=== PATIENT | female | born 1970 | race Caucasian/White ===

== ENCOUNTER 2020-11-11 15:25 | Emergency (ER) | payer OTHER ==
[~2020-11-11] VITALS: Ht 172.7 cm; Wt 110.7 kg
--- NOTE | 2020-11-11 15:54 | PHYS DOC ---
Past History Additional Past Medical Histor: Factor 5 (NIKKI STEVENSON APRN) Past Surgical History: (NIKKI STEVENSON APRN) Alcohol Use: None (NIKKI STEVENSON APRN) General Adult EDM: Chief Complaint: HEAT EXPOSURE HPI: HPI: Patient is a 49-year-old female being seen in the ER today for heat exposure. 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 She reports that she was experiencing lightheadedness, nausea, headache and just feeling overheated at that time. Patient reports that she got back to the office in the air conditioning and now she is feeling better. She states that she just feels fatigued and has a headache all over her head. She states that it is a "you are just hot headache". Patient rates pain 4 out of 10. No treatment prior to arrival. Treatment was offered to patient for her headache pain but she refused. Patient denies any nausea, vomiting, abdominal pain, vision changes, lightheadedness, chest pain, shortness of breath. (NIKKI STEVENSON APRN) Review of Systems: Review of Systems: 14 body systems of the review of systems have been reviewed. See HPI for pertinent positive and negative responses, otherwise all other systems are negative, nonpertinent or noncontributory (NIKKI STEVENSON APRN) Allergies: Allergies: Allergies Coded Allergies Type Severity Reaction Last Updated Verified No Known Drug Allergies 11/11/20 No (NIKKI STEVENSON APRN) Physical Exam: PE: Constitutional: Well developed, well nourished, no acute distress, non-toxic appearance. [] HENT: Normocephalic, atraumatic, bilateral external ears normal, oropharynx moist, no oral exudates, nose normal. [] Eyes: PERRL, EOMI, conjunctiva normal, no discharge. [] Neck: Normal range of motion, no stridor Cardiovascular:Heart rate regular rhythm, no murmur [] Lungs & Thorax: Bilateral breath sounds clear to auscultation [] Abdomen: Bowel sounds normal, soft, no tenderness, no masses, no pulsatile masses. [] Skin: Warm, dry, no erythema, no rash. [] Back: Normal range of motion Extremities: No tenderness, no cyanosis, no clubbing, ROM intact, no edema. [] Neurologic: Alert and oriented X 3, normal motor function, normal sensory function, no focal deficits noted. [] Psychologic: Affect normal, judgement normal, mood normal. [] (NIKKI STEVENSON APRN) Current Patient Data: Vital Signs: Vital Signs Date Time Temp Pulse Resp B/P (MAP) Pulse Ox O2 Delivery O2 Flow Rate FiO2 11/11/21 15:27 99.0 88 15 128/88 97 Room Air (NIKKI STEVENSON APRN) EKG: EKG: EKG performed by ER staff at 1603 shows sinus rhythm, no STEMI as read by Dr. Chand at 1612 [] (NIKKI STEVENSON APRN) Radiology/Procedures: Radiology/Procedures: [] (NIKKI STEVENSON APRN) Heart Score: C/O Chest Pain: No Risk Factors: Risk Factors: DM, Current or recent (<one month) smoker, HTN, HLP, family history of CAD, obesity. Risk Scores: Score 0 - 3: 2.5% MACE over next 6 weeks - Discharge Home Score 4 - 6: 20.3% MACE over next 6 weeks - Admit for Clinical Observation Score 7 - 10: 72.7% MACE over next 6 weeks - Early Invasive Strategies (NIKKI STEVENSON APRN) Course & Med Decision Making: Course & Med Decision Making Pertinent Labs and Imaging studies reviewed. (See chart for details) [] Patient is a 49-year-old female being evaluated for heat exposure. Work-up in the ER consisted of blood work, UA, EKG. Patient was treated with a liter of normal saline. Work-up in the ER was unremarkable. Patient did have elevated BUN/creatinine. Patient was given the liter of normal saline and this was rechecked. BUN and creatinine were trending down. Patient educated on the need to increase fluids and stay in the air conditioning and avoid the heat. I discussed with patient all findings and diagnostic testing as well as the need to follow-up with PCP for further evaluation and treatment or return to the ER if any new or worsening symptoms. Strict return precautions were also discussed at length. Patient voiced understanding and agreement with the plan. Patient is hemodynamically stable at the time of disposition. (NIKKI STEVENSON APRN) Dragon Disclaimer: Dragon Disclaimer: This electronic medical record was generated, in whole or in part, using a voice recognition dictation system. (NIKKI STEVENSON APRN) Attending Co-Sign The patient was seen and interviewed as well as examined at the bedside. The chart was reviewed. The case was discussed. Agree with the plan of care. (MATTIE GARCIA DO) Departure Departure: Impression: Primary Impression: Dehydration Disposition: 01 HOME / SELF CARE / HOMELESS Condition: GOOD Referrals: PCP,NO (PCP) Patient Instructions: Dehydration, Adult Additional Instructions: You were seen in the ER today for heat exposure and dehydration. As we discussed, your kidney function was elevated most likely indicating dehydration. This was treated with a liter of normal saline and this level is rechecked. It was trending downward. Reported that you are having improvement in your s ymptoms. When you go home please make sure that you are pushing fluids. Please avoid being in the heat and stay in a cool area. Follow-up with your primary care provider as soon as possible regarding your ER visit. If you develop syncope, uncontrollable nausea or vomiting, lightheadedness, chest pain or shortness of breath these return to the ER immediately. EMERGENCY DEPARTMENT GENERAL DISCHARGE INSTRUCTIONS Thank you for coming to [facility] (ED) today and trusting us with you care. We trust that you had a positivie experience in our Emergency Department. If you wish to speak to the department management, you may call the director at [phone]. YOUR FOLLOW UP INSTRUCTIONS ARE FOLLOWS: 1. Do you have a private Doctor? If you do not have a private doctor, please ask for a resource list of physicians or clinics that may be able to assist you with follow up care. 2. The Emergency Physician has interpreted your x-rays. The X-Ray specialist will also review them. If there is a change in the findings, you will be notified in 48 hours when at all possible. 3. A lab test or culture has been done, your results will be reviewed and you will be notified if you need a change in treatment. ADDITIONAL INSTRUCTIONS AND INFORMATION: 1. Your care today has been supervised by a physician who is specially trained in emergency care. Many problems require more than one evaluation for a complete diagnosis and treatment. We recommend that you schedule your follow up appointment as recommended to ensure complete treatment of you illness or injury. If you are unable to obtain follow up care and continue to have a problem, or if your condition worsens, we recommend that you return to the ED. 2. We are not able to safely determine your condition over the phone nor are we able to give sound medical advice over the phone. For these safety reasons, if you call for medical advice we will ask you to come to the ED for further evaluation. 3. If you have any questions regarding these discharge instructions please call the ED at [phone]. SAFETY INFORMATION: In the interest of safety, wellness, and injury prevention; we encourage you to wear your sealbelt, if you smoke; quite smoking, and we encourage family to use a pr otective helmet for bicycling and other sporting events that present an increased risk for head injury. IF YOUR SYMPTOMS WORSEN OR NEW SYMPTOMS DEVELOP, OR YOU HAVE CONCERNS ABOUT YOUR CONDITION; OR IF YOUR CONDITION WORSENS WHILE YOU ARE WAITING FOR YOUR FOLLOW UP APPOINTMENT; EITHER CONTACT YOUR PRIMARY CARE DOCTOR, THE PHYSICIAN WHOSE NAME AND NUMBER YOU WERE GIVEN, OR RETURN TO THE ED IMMEDIATELY. NIKKI STEVENSON APRN Nov 11, 2020 15:54 MATTIE GARCIA DO Nov 13, 2020 05:32
[2020-11-11] MEDS ORDERED: IV NORMAL SALINE 1,000ML 1,000 ML IV ONE (16:00)
--- NOTE | 2020-11-11 16:14 | EKG ---
[address] [address] Test Date: 2020-11-11 Test Time: 16:03:47 Pat Name: LAST VELASCO Department: Room: Gender: F Utility Sales Representative: SRINIVASA : 1970 Requested By: NIKKI STEVENSON Order Number: [id number] Reading MD: Measurements Intervals [place] Rate: 98 P: 24 MT: 168 QRS: 8 QRSD: 68 T: 13 QT: 340 QTc: 436 Interpretive Statements SINUS RHYTHM OTHERWISE NORMAL ECG RI6.02 No previous ECG available for comparison
[2020-11-11 16:23] LABS: BASO # 0.1 x10^3/uL (0.0-0.2); BASO % 1 % (0-3); EOS % 0 % (0-3); HEMOGLOBIN 14.5 g/dL (12.0-15.5); LYMPH # 3.2 x10^3/uL (1.0-4.8); LYMPH % 29 % (24-48); MEAN CORPUSCULAR HEMOGLOBIN 28 pg (25-35); MEAN CORPUSCULAR HGB CONC 33 g/dL (31-37); MEAN CORPUSCULAR VOLUME 83 fL (79-100); MONO # 0.8 x10^3/uL (0.0-1.1); MONO % 7 % (0-9); NEUT # 7.1 x10^3uL (1.8-7.7); NEUT % 64 % (31-73); PLATELET COUNT 276 x10^3/uL (140-400); RED BLOOD COUNT 5.29 x10^6/uL (3.50-5.40); RED CELL DISTRIBUTION WIDTH 14.1 % (11.5-14.5); WHITE BLOOD COUNT 11.2 x10^3/uL (4.0-11.0)
[2020-11-11 16:34] LABS: CALCIUM 10.1 mg/dL (8.5-10.1); CREATININE 1.3 mg/dL (0.6-1.0); GFR 43.7; POTASSIUM 4.1 mmol/L (3.5-5.1)
[2020-11-11 16:40] LABS: ALBUMIN 4.3 g/dL (3.4-5.0); TOTAL BILIRUBIN 0.5 mg/dL (0.2-1.0); TOTAL PROTEIN 8.5 g/dL (6.4-8.2)
[2020-11-11 17:29] LABS: BILIRUBIN,URINE NEG (NEG); CLARITY,URINE HAZY; COLOR,URINE YELLOW; GLUCOSE,URINE NEG (NEG); NITRITE,URINE NEG (NEG); UROBILINOGEN,URINE 0.2 mg/dL (0.2 mg/dL)
[2020-11-11 17:36] LABS: HYALINE CASTS, URINE OCC /HPF
[2020-11-11 17:37] LABS: BACTERIA,URINE MOD /HPF (0-FEW); SQUAMOUS EPITHELIAL CELL,UR MOD /LPF
[2020-11-11 18:31] LABS: CALCIUM 9.2 mg/dL (8.5-10.1); CREATININE 1.1 mg/dL (0.6-1.0); POTASSIUM 4.5 mmol/L (3.5-5.1)
[2020-11-11 18:37] LABS: ALBUMIN/GLOBULIN RATIO 1.1 (1.0-1.7); TOTAL BILIRUBIN 0.4 mg/dL (0.2-1.0); TOTAL PROTEIN 7.8 g/dL (6.4-8.2)
[2020-11-11 18:57] VITALS: BP 125/89
== END 2020-11-11 18:58 | disposition home or self-care (01) ==
LOC: ER 15:25
DX: E86.0 Dehydration (principal); R51.9 Headache, unspecified; R42 Dizziness and giddiness
CPT/HCPCS: 36415; 80053; 81001; 84484; 85025; 87086; 93005; 96360; 99284; J7030

== ENCOUNTER → 2020-12-13 | Outpatient (CLI) | payer OTHER ==
--- NOTE | 2020-12-13 18:23 | RAD ---
Exam: Left ankle 2 views INDICATION: Fall, left wrist pain TECHNIQUE: Frontal and lateral views of the left wrist Comparisons: None FINDINGS: Bone mineralization is normal. No acute or healed fractures. Soft tissues are unremarkable. Joint spa deanne are well-maintained. IMPRESSION: No acute osseous abnormality Electronically signed by: Missy Contreras MD (12/13/2020 6:21 PM) CYNDI
--- NOTE | 2020-12-13 18:25 | RAD ---
Exam: Right knee 2 views INDICATION: Fall, right anterior knee pain TECHNIQUE: Frontal and lateral views the right knee Comparisons: None FINDINGS: Soft tissue swelling overlying the patella. Bone mineralization is normal. No acute or healed fractur es. Joint spaces are well-maintained. IMPRESSION: Soft tissue swelling overlying the patella without underlying osseous abnormality identified. Electronically signed by: Missy Contreras MD (12/13/2020 6:22 PM) CYNDI
--- NOTE | 2020-12-13 18:26 | RAD ---
Exam: Left ankle 3 views INDICATION: Fall, acute left ankle pain TECHNIQUE: Frontal, lateral and oblique views left ankle Comparisons: None FINDINGS: Bone mineralization is normal. No acute or healed fractures. Soft tissues are unremarkable. Joint spa deanne are well-maintained. IMPRESSION: No acute osseous abnormality Electronically signed by: Missy Contreras MD (12/13/2020 6:23 PM) CYNDI
== END ==
LOC: PMG 16:57
PROVIDERS: ATTEND Nurse Practitioner Family
DX: M79.89 Other specified soft tissue disorders (principal); M25.561 Pain in right knee; M25.532 Pain in left wrist; M25.572 Pain in left ankle and joints of left foot
CPT/HCPCS: 73110; 73560; 73610